=== PATIENT | female | born 1980 | race Asian ===

== ENCOUNTER 2017-05-20 13:10 | Observation (INO) | payer BC ==
[~2017-05-20] VITALS: Ht 160 cm; Wt 89.8 kg
[2017-05-20 14:03] VITALS: BP 135/91
== END 2017-05-20 17:45 | disposition home or self-care (01) ==
LOC: MLD 13:10
PROVIDERS: ADMIT Obstetrics & Gynecology; ATTEND Obstetrics & Gynecology
DX: O26.893 Other specified pregnancy related conditions, third trimester (principal); R21 Rash and other nonspecific skin eruption; Z3A.38 38 weeks gestation of pregnancy
CPT/HCPCS: 81000; G0378